=== PATIENT | female | born 1980 | race Caucasian/White ===

== ENCOUNTER 2017-01-14 23:46 | Emergency (ER) | payer OTHER ==
--- NOTE | ~2017-01-14 | CT4 ---
[facility] A Service of [facility] & [facility] RADIOLOGY TEXT RESULTS PATIENT: KEVIN CRAWFORD LOCATION: [facility] : 84 UNIT #: [id number] AGE: [address]: Rickie Carson MD SEX: F ORDER DR: [id number] [facility] [address] [place], [place] [address] [id number] E MR#: [id number] Acc #: [id number] NAME: KEVIN CRAWFORD. : 1980 SEX: F STUDY DATE/TIME: 01/15/2017 1:39 UNIT: [facility] ROOM: STUDY DESCRIPTION: CT Abd and Pelv Wo Cont Attending Physician: Mann Carson M.D. Ordering Physician: Carlitos Diaz D.O. Primary Care Physician: Primary Care Physician No MEDICAL IMAGING REPORT This report is preliminary unless electronic signature is present EXAM CT abdomen and pelvis without contrast, 01/15/2017 HISTORY 36-year-old female with back pain since 13:00 yesterday. Left lower quadrant abdominal pain. Gastroparesis. Two prior sections. Patient states stomach and esophageal surgery. COMPARISON CT abdomen and pelvis without contrast, 01/09/2014, 11/11/2011, 06/07/2010. PROCEDURE 3.0 mm noncontrast axial images through the abdomen and pelvis. Enteric contrast was not administered. Sagittal and coronal reformatted images were obtained. TECHNIQUE This CT exam was performed with one or more of the following radiation dose reduction techniques: automatic exposure control, adjustment of mA and/or kV according to patient size, and iterative reconstruction. 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 No acute airspace disease is seen within the lung bases. The liver, gallbladder, pancreas, adrenals and right kidney are normal. 2 nonobstructing stones are seen within the left kidney, largest measuring 5.0 mm. No ureteral stone or hydronephrosis is seen. There is asymmetric elevation of the left hemidiaphragm, and the spleen is somewhat high-riding but appears unremarkable. There appears to be malposition of the bowel with the colon located to left of midline and most of the small bowel loops to the right of midline. I believe this was present on prior studies, but is quite difficult to ascertain due to lack of IV and oral contrast on this and all preceding examinations. [facility] A Service of [facility] / [facility] RADIOLOGY TEXT RESULTS PATIENT: KEVIN CRAWFORD LOCATION: [facility] : 84 UNIT #: [id number] AGE: [address]: Rickie Carson MD SEX: F ORDER DR: There does appear to be abnormal configuration of the duodenum, located predominately to the right of midline, and not extending into the left upper quadrant at the traditional location of ligament of Treitz. There is abnormal segmental thickening of small bowel in the right mid abdomen, thought to represent the duodenum and proximal jejunum (series 602, image 19 and series 2, image #67, 73, denoted by arrows). No evidence of high-grade large or small bowel obstruction. Appendix is not visualized. Location of the cecum is difficult to ascertain, thought to be located within the deep left hemipelvis. No free air or free fluid is identified. PELVIS FINDINGS: Uterus is deviated toward the right of midline. It may be adhesed or may represent a unicornuate uterus. Urinary bladder and rectum are normal. Osseous structures appear grossly unremarkable. IMPRESSION 1. 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 This is difficult to evaluate both on this examination and the multiple preceding examinations, all of which have been performed without the benefit of IV or oral contrast. 2. The appendix cannot be satisfactorily visualized on this examination. The cecum is thought to be located within the pelvis slightly to the left of midline. 3. The distal duodenum or proximal jejunum within the right midabdomen (series 2, image 67) appears mildly thickened or inflamed. However, it is recognized the patient's symptoms are predominately located in the left lower quadrant. No active left lower quadrant inflammatory type changes are appreciated on this examination. 4. The uterus is deviated toward the right of midline and is unchanged in configuration from prior examinations. This may be due to adhesions deviating the uterus toward the right or could represent a unicornuate variant of the uterus. 5. Pectus carinatum configuration of the chest. 6. Nonobstructing left intrarenal calculi. 7. No acute osseous abnormalities. Dictated by... Kianna Ramos M.D. THIS IS AN ELECTRONICALLY VERIFIED REPORT Kianna Ramos M.D. at 01/16/2017 1:51 AM REBECA/julienne TD: 01/15/2017 11:14 JOB #: [id number] [facility]. [facility] A Service of [facility] / [facility] RADIOLOGY TEXT RESULTS PATIENT: KEVIN CRAWFORD [facility] #: [id number] : 84 UNIT #: [id number] AGE: [address]: Rickie Carson MD SEX: F ORDER DR: MEDICAL IMAGING REPORT COPY
[2017-01-14 23:01] LABS: BASOPHIL# 0.1 X10e3 (0-0.3); BASOPHIL% 0.8 % (0-2.5); EOSINOPHIL# 0.2 X10e3 (0-0.7); EOSINOPHIL% 1.1 % (0.0-7.0); HEMATOCRIT 45.8 % (35.0-45.0); HEMOGLOBIN 15.5 gm/dL (12.0-16.0); LYMPHOCYTE% 34.5 % (17.0-45.0); MEAN CELL VOLUME 91.1 FL (83-96); MEAN CORPUSCULAR HEMOGLOBIN 30.8 PG (28-34); MEAN CORPUSCULAR HGB CONC 33.8 g/dL (30-36); MEAN PLATELET VOLUME 7.3 FL (6.5-11.5); MONOCYTE# 0.8 X10e3 (0-1.0); MONOCYTE% 5.7 % (3.0-12.0); NEUTROPHIL# 8.4 X10e3 (1.5-7.1); NEUTROPHIL% 57.9 % (40-75); PLATELET COUNT 268 X10e3 (140-420); RED BLOOD COUNT 5.03 X10e (3.90-5.30); RED CELL DISTRIBUTION WIDTH 13.1 % (11.0-15.5); WHITE BLOOD COUNT 14.5 X10e3 (4.0-10.5)
[2017-01-14 23:02] LABS: DIFF IND NO
[2017-01-14 23:23] LABS: ALBUMIN SERUM 4.6 g/dL (3.5-5.0); ALKALINE PHOSPHATASE 69 U/L (32-92); ALT (SGPT) 18 U/L (10-40); AMYLASE 29 U/L (0-46); AST (SGOT) 21 U/L (10-42); BILIRUBIN,TOTAL 0.4 mg/dL (0.2-2.0); BLOOD UREA NITROGEN 14 mg/dL (9-23); BUN/CREATININE RATIO 23.33; CALCIUM SERUM 9.8 mg/dL (8.4-10.2); CARBON DIOXIDE 30 mmol/L (22-31); CHLORIDE 99 mmol/L (100-111); CREATININE SERUM 0.6 mg/dL (0.6-1.4); GLOM FILT RATE Estimated ABOVE60 mL/min (>60); GLUCOSE FASTING 95 mg/dL (70-110); LIPASE 23 U/L (22-51); POTASSIUM 3.7 mmol/L (3.5-5.1); PROTEIN TOTAL SERUM 7.5 g/dL (6.0-8.3); SODIUM 137 mmol/L (135-145)
[2017-01-14 23:26] LABS: BILIRUBIN, DIRECT 0.1 mg/dL (0.0-0.2); BILIRUBIN,INDIRECT 0.3 mg/dL (0.0-0.9)
[~2017-01-14 23:46] MED LIST: ALBUTEROL17 G1 INH; AMOXICILLIN500 M1 PO; CIPRO PO; GUAIFENESIN400 MG PO; IBUPROFEN600 MG PO; KETOPROFEN PO; LORTAB 7.5-5001 TAB; NEURONTIN300 MG PO; NO MEDICATIONS; ORUDIS75 M1 PO; PEN-VEE K PO; PHENERGAN25 MG PO; TYLENOL #3 PO; VICODIN 5/1 TAB 5/50 PO; VICODIN PO; VISTARIL PO; XANAX0.5 MG; ZITHROMAX PO
[2017-01-15 00:03] LABS: URINE SOURCE CLEAN CATCH
[2017-01-15 00:07] LABS: URINE APPEARANCE CLEAR; URINE BILIRUBIN NEG (NEG); URINE BLOOD 1+ (NEG); URINE COLOR YELLOW; URINE GLUCOSE NEG (NEG); URINE KETONE NEG (NEG); URINE LEUKOCYTE ESTERASE NEG (NEG); URINE NITRATE NEG (NEG); URINE PROTEIN NEG (NEG); URINE SPECIFIC GRAVITY 1.017 (1.003-1.035); URINE UROBILINOGEN 0.2 MG/DL (NEG)
[2017-01-15 00:10] LABS: CULTURE INDICATED? YES; U HYALINE CASTS AUWI 0-2 /[LPF]; URBCS1 AUWI 0-2 /[HPF] (0-2); URINE BACTERIA AUWI 1+ (NEGATIVE); URINE SQUAMOUS EPITHELIAL CELL FEW /[HPF]
[2017-01-15 00:35] LABS: PARTIAL THROMBOPLASTIN TIME 25.9 SECONDS (23.5-31.3); PROTHROMBIN TIME (PATIENT) 10.6 SECONDS (9.6-11.5)
[2017-01-17 02:19] LABS: CHLAMYDIA TRACH Not Detected (Not Detected); N GONOR Not Detected (Not Detected)
== END 2017-01-15 03:02 | disposition home or self-care (01) ==
LOC: CED 23:46
PROVIDERS: Emergency Medicine
DX: N30.90 Cystitis, unspecified without hematuria (principal); F17.200 Nicotine dependence, unspecified, uncomplicated; Z98.890 Other specified postprocedural states; Z91.040 Latex allergy status
CPT/HCPCS: 74176; 80048; 80076; 81003; 82150; 83690; 84703; 85025; 85379; 85610; 85730; 87086; 87491; 87591; 87808; 87905; 96360; 99284; J1885

== ENCOUNTER 2017-03-25 11:40 | Emergency (ER) | payer OTHER ==
[2017-03-25] MEDS ORDERED: NEURONTIN300 MG PO (11:57)
[2017-03-25] MEDS ORDERED: NORCO 7.5-3251 EACH PO (11:57)
== END 2017-03-25 14:05 | disposition home or self-care (01) ==
LOC: CED 11:40
DX: R20.2 Paresthesia of skin (principal); R06.4 Hyperventilation; F41.9 Anxiety disorder, unspecified; F17.200 Nicotine dependence, unspecified, uncomplicated; Z98.890 Other specified postprocedural states
CPT/HCPCS: 99283

== ENCOUNTER → 2017-04-25 | Outpatient (CLI) | payer OTHER ==
[~2017-04-25] MED LIST changes: +NORCO 7.5-3251 EACH PO
--- NOTE | ~2017-04-25 | US17 ---
[facility] A Service [facility] RADIOLOGY TEXT RESULTS PATIENT: KEVIN CRAWFORD LOCATION: [facility] : 82 UNIT #: [id number] AGE: [address]: Randy Koehler MD SEX: F ORDER DR: [id number] [facility] [address] [place], [place] [address] [id number] O MR#: [id number] Acc #: [id number] NAME: KEVIN CRAWFORD. : 1980 SEX: F STUDY DATE/TIME: 04/25/2017 13:06 UNIT: [facility] ROOM: STUDY DESCRIPTION: US Breast Bilateral Attending Physician: Randy Koehler M.D. Referring Physician: Randy Koehler M.D. Ordering Physician: Randy Koehler M.D. Primary Care Physician: Randy Koehler M.D. MEDICAL IMAGING REPORT This report is preliminary unless electronic signature is present EXAM Bilateral diagnostic breast ultrasound. DATE 04/25/2017 HISTORY Bilateral nipple discharge for 1 year. COMPARISON Bilateral digital diagnostic mammogram 04/25/2017. FINDINGS Targeted sonographic imaging was performed of the breasts. Imaging was performed both by the clinical trial head and separately by myself. Please refer to the diagnostic mammogram report from the same date for full description of mammographic and sonographic findings and recommendations. IMPRESSION BIRADS 2. Benign findings. Please refer to the diagnostic mammogram report from this same date for full description of mammographic and sonographic findings and recommendations. Patients over the age of 40 are entered into a reminder system with target due date for the next mammogram. A result letter will also be sent to the patient. BIRADS: 2 Benign Finding Dictated by... [facility] A Service [facility] RADIOLOGY TEXT RESULTS PATIENT: KEVIN CRAWFORD LOCATION: [facility] : 84 UNIT #: [id number] AGE: [address]: Randy Koehler MD SEX: F ORDER DR: Kianna Ramos M.D. THIS IS AN ELECTRONICALLY VERIFIED REPORT Kianna Ramos M.D. at 04/26/2017 8:33 AM PAIGE/ga TD: 04/25/2017 21:01 JOB #: [id number] MEDICAL IMAGING REPORT Page 1 of 1 COPY
--- NOTE | ~2017-04-25 | MY26 ---
[facility] A Service of [facility] & [facility] RADIOLOGY TEXT RESULTS PATIENT: KEVIN CRAWFORD LOCATION: [facility] : 84 UNIT #: [id number] AGE: [address]: Randy Koehler MD SEX: F ORDER DR: [id number] [facility] [address] [place], [place] [address] [id number] O MR#: [id number] Acc #: [id number] NAME: KEVIN CRAWFORD. : 1980 SEX: F STUDY DATE/TIME: 04/25/2017 12:53 UNIT: [facility] ROOM: STUDY DESCRIPTION: [facility] DIAGNOSTIC W/ CAD BILAT Attending Physician: Randy Koehelr M.D. Referring Physician: Randy Koehler M.D. Ordering Physician: Rnady Koehler M.D. Primary Care Physician: Randy Koehler M.D. MEDICAL IMAGING REPORT This report is preliminary unless electronic signature is present EXAMINATION Bilateral digital diagnostic mammogram with CAD. DATE 04/25/2017 HISTORY 36-year-old female complains of right breast greenish/brownish discharge and left breast milky discharge for the past year. Patient notes it primarily which she squeezes her breasts, but not spontaneously. Denies palpable abnormality today. COMPARISON None. This is the patient's baseline study. FINDINGS CC and MLO views and true ML views were obtained of each breast utilizing digital technique and reviewed with an FDA-approved CAD device. Heterogeneously dense fibroglandular tissue is present bilaterally which can limit sensitivity of mammography. The left breast is smaller than right, which appears to be a normal variant for this patient, particularly when correlated to physical exam findings. No focal suspicious nodule, architectural distortion or clustered microcalcification is seen. Benign calcifications are seen in the subareolar right breast. Targeted diagnostic bilateral breast ultrasound was performed by the head of marketing adometry today with attention to the subareolar regions. I personally scanned the entirety of each breast today. No abnormal ductal dilation is seen in either breast. No drainable fluid collections are identified. Incidental note is made of a tiny approximately 5 mm cyst in the lower/outer quadrant of the right breast near the 7 o'clock axis, imaged not stored. [facility]. [facility] A Service of [facility] RADIOLOGY TEXT RESULTS PATIENT: KEVIN CRAWFORD LOCATION: [facility] : 84 UNIT #: [id number] AGE: [address]: Randy Koehler MD SEX: F ORDER DR: IMPRESSION 1. BIRADS 2. Benign findings in each breast. Heterogeneously dense fibroglandular tissue is present. However, there is no mammographic or sonographic explanation for the patient's bilateral breast discharge. No abnormal ductal abnormality is seen, either, when interrogated sonographically. Any further management of the breast discharge should be made upon clinical assessment. Certainly, if the discharge persists, breast surgical consultation may be considered. 2. The patient is advised to continue monthly self-breast examination and initiate routine annual screening mammogram beginning at the age of 40. 3. Findings and recommendations were discussed in detail with the patient today in the radiology department. Patients over the age of 40 are entered into a reminder system with target due date for the next mammogram. A result letter will also be sent to the patient. BIRADS: 2 Benign findings. Dictated by... Kianna Ramos M.D. THIS IS AN ELECTRONICALLY VERIFIED REPORT Kianna Ramos M.D. at 04/26/2017 8:33 AM REBECA/sonam TD: 04/25/2017 18:07 JOB #: [id number] MEDICAL IMAGING REPORT Page 1 of 1 COPY
== END | disposition home or self-care (01) ==
LOC: CMAM 04-24 12:00
DX: N64.52 Nipple discharge (principal); R92.2 Inconclusive mammogram
CPT/HCPCS: 76641; G0204

== ENCOUNTER → 2017-05-30 | Outpatient (CLI) | payer OTHER ==
[2017-05-30 15:52] LABS: BASOPHIL% 0.4 % (0-2.5); EOSINOPHIL# 0.2 X10e3 (0-0.7); EOSINOPHIL% 1.3 % (0.0-7.0); HEMATOCRIT 40.9 % (35.0-45.0); HEMOGLOBIN 13.5 gm/dL (12.0-16.0); LYMPHOCYTE# 4.3 X10e3 (1.0-3.5); LYMPHOCYTE% 36.9 % (17.0-45.0); MEAN CELL VOLUME 91.1 FL (83-96); MEAN CORPUSCULAR HEMOGLOBIN 30.1 PG (28-34); MEAN PLATELET VOLUME 7.1 FL (6.5-11.5); MONOCYTE# 0.6 X10e3 (0-1.0); MONOCYTE% 5.1 % (3.0-12.0); NEUTROPHIL# 6.5 X10e3 (1.5-7.1); NEUTROPHIL% 56.3 % (40-75); PLATELET COUNT 196 X10e3 (140-420); RED BLOOD COUNT 4.49 X10e (3.90-5.30); RED CELL DISTRIBUTION WIDTH 13.7 % (11.0-15.5); WHITE BLOOD COUNT 11.6 X10e3 (4.0-10.5)
[2017-05-30 15:53] LABS: DIFF IND NO
[2017-05-30 16:19] LABS: ALBUMIN SERUM 4.3 g/dL (3.5-5.0); BILIRUBIN,TOTAL 0.4 mg/dL (0.2-2.0); CALCIUM SERUM 9.3 mg/dL (8.4-10.2); CREATININE SERUM 0.7 mg/dL (0.6-1.4); POTASSIUM 3.5 mmol/L (3.5-5.1); PROTEIN TOTAL SERUM 7.1 g/dL (6.0-8.3)
[2017-05-30 16:57] LABS: FOLLICLE STIMULATING HORMONE 6.02 mIU/mL
[2017-05-30 16:58] LABS: LEUTINIZING HORMONE 9.07 mIU/mL
== END | disposition home or self-care (01) ==
LOC: CLAB 15:17
PROVIDERS: Nurse Practitioner
DX: N64.52 Nipple discharge (principal); N64.59 Other signs and symptoms in breast; R10.84 Generalized abdominal pain; Q79.3 Gastroschisis; Z72.0 Tobacco use
CPT/HCPCS: 80053; 80061; 82607; 82670; 82746; 83001; 83002; 83036; 84146; 84443; 85025